=== PATIENT | female | born 1995 | race Caucasian/White ===

== ENCOUNTER → 2016-10-09 | Outpatient (CLI) | payer OTHER ==
[~2016-10-09] MED LIST: GADOBUTROL 7.5 MMOL/7.5 ML VIAL INT ART ONE; IOHEXOL 300 MG/ML 50 ML VIAL. INT ART ONE; LIDOCAINE 1% Multi-Dose 20 ML VIAL. ID ONE
--- NOTE | 2016-10-09 14:38 | KCIC ---
PROCEDURE Rightshoulder injection using fluoroscopic guidance, prior to MR. HISTORY Shoulder pain. TECHNIQUE The procedure was explained to the patient as were potential risks. All questions were answered. Informed written consent was obtained. The shoulder was prepped and draped in the usual sterile manner. Following administration of local anesthetic, a 25-gauge needle was advanced into the anterior shoulder. Following negative aspiration,15cc of a solution of 5cc Omnipaque-300 contrast, 5 cc 1% lidocaine, 10 cc normal saline, and 0.1 cc gadolinium was injected without difficulty. The needle was removed. There was good hemostasis at the injection site. The patient left in stable condition without immediate complication. The patient was given postprocedural instructions, and instructed to contact us or the ER if there are any complications. COMPARISON None. FINDINGS Single fluoroscopic image shows needle tip at the inferior 1/3 humeral head. Contrast material fills the joint space. 30 seconds fluoroscopic time use for the exam. IMPRESSION Fluoroscopic guided shoulder injection for MRI. Electronically signed by: Robert Bautista (Oct 09, 2016 14:36:54)
--- NOTE | 2016-10-09 15:08 | KCIC ---
PROCEDURE MR arthrogram right shoulder dated 11/06/2016. HISTORY Shoulder pain and instability with positive sulcus and Mathur test. Shoulder cracking for 3 months. TECHNIQUE Routine MR arthrogram right shoulder performed after the intra-articular injection of dilute gadolinium. COMPARISON None. FINDINGS Adequate distention of the joint space with contrast material. Glenoid labrum is intact. No labral tear or paralabral cyst. Glenoid articular cartilage is intact. Glenohumeral ligaments intact. Rotator cuff is intact. No full-thickness tear or partial thickness defect. No cuff retraction. Subscapularis is intact. Long head biceps tendon and biceps anchor are intact. Extra-articular biceps tendon courses within the bicipital groove. AC joint unremarkable. No significant undersurface spurring. No significant subacromial/subdeltoid bursal fluid. Acromion type 1 morphology. Suprascapular and spinoglenoid notches are clear. No significant muscle edema or muscle atrophy. IMPRESSION No evidence of internal derangement. Electronically signed by: Robert Bautista (Oct 09, 2016 15:07:09)
--- NOTE | 2016-10-09 16:03 | KCIC ---
PROCEDURE Leftshoulder injection using fluoroscopic guidance, prior to MR. HISTORY Shoulder pain. TECHNIQUE The procedure was explained to the patient as were potential risks. All questions were answered. Informed written consent was obtained. The shoulder was prepped and draped in the usual sterile manner. Following administration of local anesthetic, a 25-gauge needle was advanced into the anterior shoulder. Following negative aspiration,15cc of a solution of 5cc Omnipaque-300 contrast, 5 cc 1% lidocaine, 10 cc normal saline, and 0.1 cc gadolinium was injected without difficulty. The needle was removed. There was good hemostasis at the injection site. The patient left in stable condition without immediate complication. The patient was given postprocedural instructions, and instructed to contact us or the ER if there are any complications. COMPARISON None FINDINGS Single fluoroscopic image shows needle tip at the inferior 1/3 medial humeral head. Contrast material fills the joint space. 35seconds fluoro time used. IMPRESSION Fluoroscopic guided left shoulder injection for MRI. Electronically signed by: Robert Bautista (Oct 09, 2016 16:02:15)
--- NOTE | 2016-10-09 16:36 | KCIC ---
PROCEDURE MRI arthrogram left shoulder dated 10/09/2016. HISTORY Shoulder pain and cracking for 3 months. TECHNIQUE Routine MR arthrogram left shoulder performed after the intra-articular injection of dilute gadolinium. COMPARISON None. FINDINGS Adequate distention of the joint space with contrast material. Glenoid labrum is intact. No discrete labral tear or paralabral cyst. The glenoid articular cartilage is intact. No intra-articular loose body. Long head biceps tendon and biceps anchor are intact. Extra-articular biceps tendon courses within the bicipital groove. Minimal increased signal within the supraspinatus tendon footplate. The rotator cuff is otherwise intact. No significant partial thickness tear or full-thickness tear. No cuff retraction. The subscapularis is intact. AC joint unremarkable. No significant undersurface spurring. No significant subacromial/subdeltoid bursal fluid. The acromion is type 1 morphology. Suprascapular and spinoglenoid notches are clear. No significant muscle edema or muscle atrophy. IMPRESSION - Mild rotator cuff tendinopathy with no evidence of full-thickness tear. - Intact biceps labral complex. Electronically signed by: Robert Bautista (Oct 09, 2016 16:35:33)
== END | disposition home or self-care (01) ==
LOC: KCIC 12:40
PROVIDERS: ATTEND Physician Assistant
DX: M24.112 Other articular cartilage disorders, left shoulder (principal); M75.101 Unspecified rotator cuff tear or rupture of right shoulder, not specified as traumatic
CPT/HCPCS: 73040; 73222; Q9967; A9585